=== PATIENT | male | born 1955 | race Caucasian/White ===

== ENCOUNTER 2017-08-27 21:59 | Inpatient (IN) | END 2017-08-28 13:10 | disposition home or self-care (01) | DRG 313 ==

== ENCOUNTER 2018-03-30 16:06 | Emergency (ER) | payer MEDICARE, OTHER ==
[~2018-03-30] VITALS: Ht 180.3 cm; Wt 102.0 kg
[~2018-03-30 16:06] MED LIST: ALPR1TAB7 PO; ASPI325T32 PO; ATOR40TA68 PO; ENAL2.5T PO; FEXO180T61 PO; LEVO5TAB28 PO; LOSA100T8 PO; NITR0.4T32 SL; RANI300T PO; TAMS0.4C2 PO; TIOT18CA INH; TRAM50TA PO
[2018-03-30 16:12] VITALS: BP 148/82; PULSE 72; RESP 18; Ht 180.3 cm; Wt 102.0 kg
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
[2018-03-30] MEDS ORDERED: IBUP-1542 PO (20:06)
[2018-03-30] MEDS ORDERED: TRAM50TA2 PO (20:06)
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
== END 2018-03-30 21:40 | disposition home or self-care (01) ==
LOC: FTE 16:06
DX: S33.5XXA Sprain of ligaments of lumbar spine, initial encounter (principal); I10 Essential (primary) hypertension; V89.2XXA Person injured in unspecified motor-vehicle accident, traffic, initial encounter; Z79.82 Long term (current) use of aspirin; Z87.891 Personal history of nicotine dependence
CPT/HCPCS: 93005